=== PATIENT | male | born 1970 | race Two or more races ===

== ENCOUNTER 2018-02-09 20:13 | Emergency (ER) | payer MEDICAID ==
[~2018-02-09] VITALS: Ht 165.1 cm; Wt 81.6 kg
[2018-02-09 20:27] VITALS: BP 129/88
[2018-02-09] MEDS ORDERED: methylPREDNISolone SOD SUCC 125 MG/2 ML VL IM ONE (21:45)
== END 2018-02-09 21:47 | disposition home or self-care (01) ==
LOC: ER 20:13
DX: J32.9 Chronic sinusitis, unspecified (principal)
CPT/HCPCS: 96372; 99283; J2930

== ENCOUNTER 2018-07-12 09:38 | Emergency (ER) | payer MEDICAID ==
[~2018-07-12] VITALS: Ht 165.1 cm; Wt 86.2 kg
[2018-07-12 09:44] VITALS: BP 115/79
[2018-07-12] MEDS ORDERED: LIDOCAINE 1% HCL (LOCAL ANESTH.) INJ 20ML MDV ONE (11:14)
[2018-07-12] MEDS ORDERED: cefTRIAXone SOD 1,000 MG VL IM ONE (11:15)
[2018-07-12] MEDS ORDERED: methylPREDNISolone SOD SUCC 125 MG/2 ML VL IM ONE (11:15)
[2018-07-12] MEDS ORDERED: LIDOCAINE 1% HCL (LOCAL ANESTH.) INJ 20ML MDV IJ ONE (11:30)
== END 2018-07-12 12:14 | disposition home or self-care (01) ==
LOC: ER 09:38
DX: J03.90 Acute tonsillitis, unspecified (principal); K12.2 Cellulitis and abscess of mouth
CPT/HCPCS: 71046; 96372; 99283; J0696; J2001; J2930